=== PATIENT | female | born 1970 | race Caucasian/White ===

== ENCOUNTER → 2018-04-30 | Outpatient (CLI) | payer BC | END | disposition home or self-care (01) | LOC: PCVCIMAG 09:38 | DX: R09.89 Other specified symptoms and signs involving the circulatory and respiratory systems (principal); R06.00 Dyspnea, unspecified; E11.9 Type 2 diabetes mellitus without complications; R53.83 Other fatigue; R00.1 Bradycardia, unspecified; R01.1 Cardiac murmur, unspecified | CPT/HCPCS: 93306; 93325; 93351; 93880 ==